=== PATIENT | female | born 1990 | race Two or more races ===

== ENCOUNTER 2016-10-26 14:36 | Emergency (ER) | payer OTHER ==
[~2016-10-26] VITALS: Ht 157.5 cm; Wt 90.7 kg
[~2016-10-26 14:36] MED LIST: FLUO10CA26 PO
--- NOTE | 2016-10-26 14:44 | NUR ---
Dr. Osullivan in room for eval.
--- NOTE | 2016-10-26 14:53 | NUR ---
Patient discharged to home in stable conditon. Written and verbal after care instructions given. Patient verbalizes understanding of instructions.
[2016-10-26 14:54] VITALS: BP 121/83
== END 2016-10-26 15:01 | disposition home or self-care (01) ==
LOC: ER 14:40
DX: J02.9 Acute pharyngitis, unspecified (principal); Z88.8 Allergy status to other drugs, medicaments and biological substances
CPT/HCPCS: A4663

== ENCOUNTER 2016-11-21 12:34 | Emergency (ER) | payer OTHER ==
[~2016-11-21] VITALS: Ht 157.5 cm; Wt 90.7 kg
[2016-11-21] MEDS ORDERED: KETOROLAC TROMETHAMINE 30 MG INJ IVP ONE (14:15)
[2016-11-21] MEDS ORDERED: IV NORMAL SALINE 1000 ML BAG IV ONE (14:15)
[2016-11-21] MEDS ORDERED: CLINDAMYCIN PHOSPHATE IV 600 MG in IV DEXTROSE 5% 100 ML IV ONE (14:15)
[2016-11-21] MEDS ORDERED: DEXAMETHASONE SOD PHOSPHATE 4 MG INJ IV ONE (14:15)
[2016-11-21] MEDS ORDERED: DEXAMETHASONE SOD PHOSPHATE 10 MG INJ ONE (14:25)
[2016-11-21] MEDS ORDERED: CLINDAMYCIN PHOSPHATE 600 MG/4 ML VIAL ONE (14:26)
[2016-11-21] MEDS ORDERED: KETOROLAC TROMETHAMINE 30 MG INJ ONE (14:27)
[2016-11-21 14:33] LABS: BASOPHILS # (AUTO) 0.4 K/uL (0.0-8.0); BASOPHILS % (AUTO) 2.5 % (0.0-2.0); EOSINOPHILS # (AUTO) 0.1 K/uL (0.0-0.7); EOSINOPHILS % (AUTO) 0.5 % (0.0-7.0); HEMATOCRIT 38.2 % (37-47); HEMOGLOBIN 12.4 G/DL (12.0-16.0); LYMPHOCYTES # (AUTO) 1.3 K/UL (0.8-4.8); LYMPHOCYTES % (AUTO) 7.6 % (20.5-51.5); MEAN CORPUSCULAR HEMOGLOBIN 28.9 UUG (27.0-31.0); MEAN CORPUSCULAR HGB CONC 33 g/dL (32.0-37.0); MEAN CORPUSCULAR VOLUME 88.7 FL (81.0-99.0); MONOCYTES # (AUTO) 0.6 K/UL (0.1-1.30); MONOCYTES % (AUTO) 3.7 % (0.0-11.0); NEUTROPHILS # (AUTO) 14.3 K/UL (1.8-8.9); NEUTROPHILS % (AUTO) 85.7 % (38.5-71.5); PLATELET COUNT (AUTO) 381 K/UL (150-450); WHITE BLOOD COUNT (AUTO) 16.7 K/UL (4.0-11.2)
[2016-11-21 14:39] LABS: CREATININE 0.7 mg/dL (0.6-1.3); POTASSIUM 3.5 mmol/L (3.5-5.1)
[2016-11-21 14:44] LABS: BILIRUBIN,DIRECT 0.1 mg/dL (0.0-0.2); BILIRUBIN,TOTAL 0.5 mg/dL (0.2-1.0); TOTAL PROTEIN, SERUM 8.3 g/dL (6.4-8.2)
[2016-11-21 14:59] LABS: BAND % (MANUAL) 4 % (0-10); EOSINOPHILS % (MANUAL) 2 % (0-8); LYMPHOCYTES % (MANUAL) 10 % (20-40); MONOCYTES % (MANUAL) 4 % (2-10); NEUTROPHILS % (MANUAL) 80 % (42-75)
--- NOTE | 2016-11-21 16:24 | NUR ---
PT WAS EVALUATED BY DR ZEPEDA. PT WAS MEDICATED ACCORDING TO ER MD ORDERS. PT TOLERATED TO MEDICATION WITHOUT COMPLICATIONS. PT WAS D/C TO HOME. D/C INSTRUCTIONS GIVEN TO THE PT.
[2016-11-21 16:25] VITALS: BP 137/81
== END 2016-11-21 16:26 | disposition home or self-care (01) ==
LOC: ER 13:05
DX: J03.90 Acute tonsillitis, unspecified (principal); F41.9 Anxiety disorder, unspecified; Z88.8 Allergy status to other drugs, medicaments and biological substances
CPT/HCPCS: 36415; 80048; 80076; 83605; 84484; 85025; 87040 ×2; 96365; 96375; 99285; A4663; J1100; J1885; J3490 ×2; J7030; 70030-TC

== ENCOUNTER 2017-05-04 14:15 | Emergency (ER) | payer OTHER ==
[~2017-05-04] VITALS: Ht 160 cm; Wt 90.7 kg
--- NOTE | 2017-05-04 14:36 | NUR ---
MSE COMPLETED. PT D/C'D HOME, ACI/RX X1 GIVEN. PT AMBULATED VW/O DIFF/TOOK ALL BELONGINGS.
[2017-05-04 14:37] VITALS: BP 117/65
== END 2017-05-04 14:41 | disposition home or self-care (01) ==
LOC: ER 14:15
DX: J20.9 Acute bronchitis, unspecified (principal); Z90.49 Acquired absence of other specified parts of digestive tract
CPT/HCPCS: 99283; A4663

== ENCOUNTER 2017-09-07 11:30 | Emergency (ER) | payer OTHER ==
[~2017-09-07] VITALS: Ht 160 cm; Wt 99.8 kg
[2017-09-07] MEDS ORDERED: LEVONOR-ETH ESTRAD 0.1-0.02 MG PO (11:46)
--- NOTE | 2017-09-07 12:28 | NUR ---
hands off report given to glynn watters
[2017-09-07] MEDS ORDERED: FLUCONAZOLE 100 MG TABLET PO ONE (12:30)
[2017-09-07] MEDS ORDERED: FLUCONAZOLE 100 MG TABLET ONE (12:31)
[2017-09-07 12:52] LABS: BASOPHILS # (AUTO) 0.1 K/uL (0.0-8.0); BASOPHILS % (AUTO) 0.8 % (0.0-2.0); CREATININE 0.8 mg/dL (0.6-1.3); EOSINOPHILS # (AUTO) 0.1 K/uL (0.0-0.7); EOSINOPHILS % (AUTO) 1.3 % (0.0-7.0); HEMATOCRIT 35.6 % (31.2-41.9); HEMOGLOBIN 12.1 g/dL (10.9-14.3); LYMPHOCYTES # (AUTO) 1.7 K/uL (20.0-40.0); LYMPHOCYTES % (AUTO) 26.4 % (20.5-51.5); MEAN CORPUSCULAR HEMOGLOBIN 30.3 uug (24.7-32.8); MEAN CORPUSCULAR HGB CONC 34 g/dL (32.3-35.6); MONOCYTES # (AUTO) 0.5 K/uL (2.0-10.0); MONOCYTES % (AUTO) 7.8 % (0.0-11.0); NEUTROPHILS # (AUTO) 4.2 K/uL (1.8-8.9); NEUTROPHILS % (AUTO) 63.7 % (38.5-71.5); PLATELET COUNT (AUTO) 321 K/uL (179-408); WHITE BLOOD COUNT (AUTO) 6.5 K/uL (3.8-11.8)
[2017-09-07 12:58] LABS: BILIRUBIN,DIRECT 0.1 mg/dL (0.0-0.2); BILIRUBIN,TOTAL 0.2 mg/dL (0.2-1.0); TOTAL PROTEIN, SERUM 7.4 g/dL (6.4-8.2)
[2017-09-07 13:07] LABS: *BILIRUBIN,URIN NEGATIVE (NEGATIVE); *BLOOD, URINE 2+ (NEGATIVE); *CLARITY,URINE CLOUDY (CLEAR); *KETONES,URINE NEGATIVE (NEGATIVE); *PROTEIN,URINE TRACE (NEGATIVE); *UROBILINOGEN,URINE 0.2 E.U./dl (NORMAL); LEUKOCYTE ESTERASE ,URINE NEGATIVE (NEGATIVE); NITRITE, URINE NEGATIVE (NEGATIVE); PH,URINE 8.5 (5.0-8.0); UGLUCOSE NEGATIVE (NEGATIVE)
[2017-09-07 13:18] LABS: BACTERIA,URINE FEW /HPF (NONE SEEN); RBC,URINE 20-50 /HPF (0-3); SQUAMOUS EPITHELIAL CELL,UR FEW /HPF (NONE SEEN); URINE AMORPHOUS PHOSPHATES MANY /HPF; WBC,URINE 0-3 /HPF (0-3)
--- NOTE | 2017-09-07 13:41 | NUR ---
Patient discharged to home in stable conditon. Written and verbal after care instructions given. Patient verbalizes understanding of instructions. Stressed follow up with pmd/obgyn or return to ER for worsening s/s.
[2017-09-09 10:06] LABS: *GC NAA Negative (Negative); *TRIC.VAG. NAA Negative (Negative)
== END 2017-09-07 13:42 | disposition home or self-care (01) ==
LOC: ER 11:31
DX: N83.209 Unspecified ovarian cyst, unspecified side (principal); Z88.8 Allergy status to other drugs, medicaments and biological substances; Z79.899 Other long term (current) drug therapy
CPT/HCPCS: 36415; 76856; 84703; 85025; 85730; 87491; A4663

== ENCOUNTER 2020-01-16 16:24 | Emergency (ER) | payer OTHER ==
[~2020-01-16] VITALS: Ht 160 cm; Wt 99.8 kg
[~2020-01-16 16:24] MED LIST changes: -FLUO10CA26 PO; +LEVONOR-ETH ESTRAD 0.1-0.02 MG PO
[2020-01-16] MEDS ORDERED: FLUO10CA26 PO (16:39)
--- NOTE | 2020-01-16 17:25 | NUR ---
Patient down to radiology
--- NOTE | 2020-01-16 17:43 | NUR ---
patient back from radiology.
[2020-01-16 17:56] LABS: BASOPHILS % (AUTO) 0.6 % (0.0-2.0); EOSINOPHILS # (AUTO) 0.1 K/uL (0.0-0.7); EOSINOPHILS % (AUTO) 0.8 % (0.0-7.0); HEMATOCRIT 37.2 % (31.2-41.9); HEMOGLOBIN 12.6 g/dL (10.9-14.3); LYMPHOCYTES # (AUTO) 1.6 K/uL (20.0-40.0); LYMPHOCYTES % (AUTO) 21.3 % (20.5-51.5); MEAN CORPUSCULAR HEMOGLOBIN 31.2 uug (24.7-32.8); MEAN CORPUSCULAR HGB CONC 34 g/dL (32.3-35.6); MEAN CORPUSCULAR VOLUME 92.2 fL (75.5-95.3); MONOCYTES # (AUTO) 0.6 K/uL (2.0-10.0); MONOCYTES % (AUTO) 8.4 % (0.0-11.0); NEUTROPHILS # (AUTO) 5.1 K/uL (1.8-8.9); NEUTROPHILS % (AUTO) 68.9 % (38.5-71.5); PLATELET COUNT (AUTO) 338 K/uL (179-408); RED BLOOD CELL COUNT(AUTO) 4.04 MIL/uL (3.63-4.92); WHITE BLOOD COUNT (AUTO) 7.4 K/uL (3.8-11.8)
[2020-01-16 18:03] LABS: CREATININE 0.9 mg/dL (0.6-1.3); POTASSIUM 3.8 mmol/L (3.5-5.1)
[2020-01-16 18:09] LABS: BILIRUBIN,DIRECT 0.1 mg/dL (0.0-0.2); BILIRUBIN,TOTAL 0.4 mg/dL (0.2-1.0); TOTAL PROTEIN, SERUM 7.4 g/dL (6.4-8.2)
--- NOTE | 2020-01-16 18:50 | NUR ---
Dcd instructions given to pt. who verbalized understanding. a copy of radiology result provided as well. Pt. left room ambulatory AAOX4. No c/of pain
== END 2020-01-16 18:54 | disposition home or self-care (01) ==
LOC: ER 16:24
DX: R51 Headache (principal); R13.10 Dysphagia, unspecified; Z87.898 Personal history of other specified conditions
CPT/HCPCS: 36415; 70360; 70450; 85025; A4663

== ENCOUNTER 2020-07-03 19:20 | Emergency (ER) | payer OTHER ==
[~2020-07-03] VITALS: Ht 157.5 cm; Wt 90.7 kg
[~2020-07-03 19:20] MED LIST changes: +FLUO10CA26 PO
[2020-07-03] MEDS ORDERED: SULFAMETH/TRIMETH 800/160 MG TABLET PO ONE (20:00)
[2020-07-03] MEDS ORDERED: CEFTRIAXONE 1 G VIAL IM ONE (20:00)
[2020-07-03] MEDS ORDERED: HYDROCODONE/APAP 5-325MG TABLET PO ONE (20:00)
[2020-07-03] MEDS ORDERED: SULF1TAB48 PO (20:02)
[2020-07-03] MEDS ORDERED: CEPH500C2 PO (20:02)
[2020-07-03] MEDS ORDERED: HYDROCODONE/APAP 5-325MG TABLET ONE (20:06)
[2020-07-03] MEDS ORDERED: LIDOCAINE HCL 1% 20 ML VIAL ONE (20:06)
[2020-07-03] MEDS ORDERED: CEFTRIAXONE 1 G VIAL ONE (20:07)
[2020-07-03] MEDS ORDERED: SULFAMETH/TRIMETH 800/160 MG TABLET ONE (20:07)
[2020-07-03] MEDS ORDERED: OXYC-128 PO (20:17)
[2020-07-03] MEDS ORDERED: HYDR453.3 TP (20:17)
[2020-07-03 20:31] VITALS: BP 105/59
--- NOTE | 2020-07-03 20:31 | NUR ---
Patient discharged to home in stable condition. Written and verbal after care instructions given. Patient verbalizes understanding of instructions. Stressed follow up or return to ER for worsening s/s. Patient A/Ox4, able to ambulate with steady gait, and all belongings returned to patient prior to departure.
== END 2020-07-03 20:31 | disposition home or self-care (01) ==
LOC: ER 19:21
DX: R21 Rash and other nonspecific skin eruption (principal); F17.210 Nicotine dependence, cigarettes, uncomplicated; Z88.8 Allergy status to other drugs, medicaments and biological substances; F32.9 Major depressive disorder, single episode, unspecified; Z79.899 Other long term (current) drug therapy
CPT/HCPCS: 96372; 99283; 99406; J0696; J3490; A4663

== ENCOUNTER 2020-12-21 16:02 | Emergency (ER) | payer OTHER ==
[~2020-12-21] VITALS: Ht 157.5 cm; Wt 90.7 kg
[~2020-12-21 16:02] MED LIST changes: +CEPH500C2 PO; +HYDR453.3 TP; +OXYC-128 PO; +SULF1TAB48 PO
--- NOTE | 2020-12-21 18:00 | NUR ---
Patient discharged to home in stable condition. Written and verbal after care instructions given. Patient verbalizes understanding of instructions. Stressed follow up or return to ER for worsening s/s.
== END 2020-12-21 18:58 | disposition home or self-care (01) ==
LOC: ER 16:08
DX: J20.8 Acute bronchitis due to other specified organisms (principal); Z20.822 Contact with and (suspected) exposure to COVID-19; L24.9 Irritant contact dermatitis, unspecified cause; F17.210 Nicotine dependence, cigarettes, uncomplicated; F32.9 Major depressive disorder, single episode, unspecified; F41.9 Anxiety disorder, unspecified; Z79.899 Other long term (current) drug therapy
CPT/HCPCS: 87426; 99283; U0003; A4663

== ENCOUNTER 2021-02-03 19:22 | Emergency (ER) | payer OTHER ==
[~2021-02-03] VITALS: Ht 157.5 cm; Wt 93.0 kg
--- NOTE | 2021-02-03 19:55 | NUR ---
PT AMBULATED TO ER C/O SOB, WEAKNESS AND DIZZINESS, STATED SHE IS COUGHING UP PHLEM X 6 DAYS. STATES SHE TOOK A COVID TEST 3 DAYS AGO AND HAD A POSITIVE RESULT. SHE AGAIN TOOK ANOTHER COVID TEST 2 DAYS AGO AND HAD A NEGATIVE RESULT. CAME IN FOR WORSENING SYMPTOMS. A/O X4, DENIES CP/PRESSURE. CLEAR SPEECH, COMPLETE SENTENCES. DENIES GI/ DISTRESS.
--- NOTE | 2021-02-03 20:08 | NUR ---
DR. ARNOLD AT [facility] IN PROGRESS.
[2021-02-03] MEDS ORDERED: OXYCODONE/APAP 5-325 MG TABLET PO ONE (20:30)
--- NOTE | 2021-02-03 20:32 | NUR ---
XRAY AT BEDSIDE.
[2021-02-03] MEDS ORDERED: OXYCODONE/APAP 5-325 MG TABLET ONE (20:33)
--- NOTE | 2021-02-03 20:36 | NUR ---
PHLEB AT BEDSIDE.
[2021-02-03 20:55] LABS: HEMATOCRIT 36.5 % (31.2-41.9); MEAN CORPUSCULAR HEMOGLOBIN 30.8 uug (24.7-32.8); MEAN CORPUSCULAR VOLUME 89.4 fL (75.5-95.3); PLATELET COUNT (AUTO) 235 K/uL (179-408)
[2021-02-03 21:07] LABS: CREATININE 0.8 mg/dL (0.6-1.3); POTASSIUM 3.4 mmol/L (3.5-5.1)
[2021-02-03 21:12] LABS: BILIRUBIN,DIRECT 0.1 mg/dL (0.0-0.2); BILIRUBIN,TOTAL 0.3 mg/dL (0.2-1.0); TOTAL PROTEIN, SERUM 7.2 g/dL (6.4-8.2)
[2021-02-03] MEDS ORDERED: OXYC-128 PO (22:12)
--- NOTE | 2021-02-03 22:19 | NUR ---
Patient discharged to home in stable condition. No changes in LOC. Denies any pain/discomfort upon discharge. Written and verbal after care instructions given. Patient verbalizes understanding of instructions. Stressed follow up or return to ER for worsening s/s. Steady gait.
[2021-02-03 22:20] VITALS: BP 122/67
== END 2021-02-03 22:21 | disposition home or self-care (01) ==
LOC: ER 19:31
DX: U07.1 COVID-19 (principal); M79.10 Myalgia, unspecified site; M25.50 Pain in unspecified joint
CPT/HCPCS: 36415; 71045; 85025; A4663

== ENCOUNTER 2021-03-29 19:51 | Emergency (ER) | payer OTHER ==
[~2021-03-29] VITALS: Ht 157.5 cm; Wt 99.8 kg
[2021-03-29 20:57] LABS: *BILIRUBIN,URIN NEGATIVE (NEGATIVE); *BLOOD, URINE 3+ (NEGATIVE); *COLOR,URINE YELLOW (YELLOW); *KETONES,URINE NEGATIVE (NEGATIVE); *UROBILINOGEN,URINE 0.2 E.U./dl (NORMAL); LEUKOCYTE ESTERASE ,URINE 1+ (NEGATIVE); NITRITE, URINE NEGATIVE (NEGATIVE); PH,URINE 5.5 (5.0-8.0); UGLUCOSE NEGATIVE (NEGATIVE)
[2021-03-29 20:58] LABS: *URINE HCG, QUAL NEGATIVE (NEGATIVE)
[2021-03-29 21:00] LABS: *CLARITY,URINE SLIGHTLY CLOUDY (CLEAR); BACTERIA,URINE FEW /HPF (NONE SEEN); RBC,URINE 20-50 /HPF (0-3); SQUAMOUS EPITHELIAL CELL,UR MODERATE /HPF (NONE SEEN)
--- NOTE | 2021-03-29 21:30 | NUR ---
31 y/o female presents from home for polyuria, burning sensation when she urinates, and retention. No reports of high grade fevers, chills, diaphoresis. A&Ox4. Ambulatory w/ steady gait. Normal rate & Rhythm. BP unremarkable. GI/: No issues present beyond chief complaint.
--- NOTE | 2021-03-29 21:49 | NUR ---
MD Ocasio at bedside for MSE
[2021-03-29] MEDS ORDERED: CEPH500C2 PO (21:56)
[2021-03-29] MEDS ORDERED: PHEN-704 PO (21:56)
[2021-03-29] MEDS ORDERED: CEphaleXIN 500 MG CAPSULE PO ONE (22:00)
[2021-03-29] MEDS ORDERED: PHENAZOPYRIDINE HCL 100 MG TABLET PO ONE (22:00)
[2021-03-29 22:07] VITALS: BP 122/66
[2021-03-29] MEDS ORDERED: CEphaleXIN 500 MG CAPSULE ONE (22:10)
[2021-03-29] MEDS ORDERED: PHENAZOPYRIDINE HCL 100 MG TABLET ONE (22:10)
== END 2021-03-29 22:06 | disposition home or self-care (01) ==
LOC: ER 19:53
DX: N39.0 Urinary tract infection, site not specified (principal); F17.210 Nicotine dependence, cigarettes, uncomplicated; F41.9 Anxiety disorder, unspecified; F32.A Depression, unspecified; Z79.899 Other long term (current) drug therapy
CPT/HCPCS: 84703; 87086; A4663

== ENCOUNTER 2021-07-23 20:50 | Emergency (ER) | payer OTHER ==
[~2021-07-23] VITALS: Ht 157.5 cm; Wt 99.8 kg
[~2021-07-23 20:50] MED LIST changes: +PHEN-704 PO
--- NOTE | 2021-07-23 21:50 | NUR ---
Dr. Guerra at bedside for MSE.
[2021-07-23] MEDS ORDERED: ONDANSETRON ODT 4 MG TAB.RAPDIS SL ONE (22:00)
[2021-07-23] MEDS ORDERED: ONDANSETRON ODT 4 MG TAB.RAPDIS ONE (22:18)
[2021-07-23] MEDS ORDERED: IBUP-1955 PO (22:34)
--- NOTE | 2021-07-23 22:37 | NUR ---
Patient discharged to home in stable condition. Written and verbal after care instructions given. Patient verbalizes understanding of instructions. Stressed follow up or return to ER for worsening s/s. Patient out of ER with steady gait, no acute signs of distress, VSS, all belongings taken.
[2021-07-23 22:38] VITALS: BP 126/80
== END 2021-07-23 22:38 | disposition home or self-care (01) ==
LOC: ER 20:50
DX: S62.632D Displaced fracture of distal phalanx of right middle finger, subsequent encounter for fracture with routine healing (principal); X58.XXXD Exposure to other specified factors, subsequent encounter; Z72.0 Tobacco use
CPT/HCPCS: A4663; Q0162

== ENCOUNTER 2022-10-11 12:00 | Emergency (ER) | payer OTHER ==
[~2022-10-11] VITALS: Ht 157.5 cm; Wt 99.8 kg
[~2022-10-11 12:00] MED LIST changes: +IBUP-1955 PO
[2022-10-11] MEDS ORDERED: ACETAMINOPHEN ES 500 MG TABLET PO ONE (12:30)
[2022-10-11] MEDS ORDERED: IBUPROFEN 400 MG TABLET PO ONE (12:30)
[2022-10-11] MEDS ORDERED: ACETAMINOPHEN ES 500 MG TABLET ONE (12:36)
[2022-10-11] MEDS ORDERED: IBUPROFEN 400 MG TABLET ONE (12:36)
[2022-10-11 13:39] LABS: *MONOTEST NEGATIVE (NEGATIVE)
[2022-10-11] MEDS ORDERED: PENI500T PO (14:53)
--- NOTE | 2022-10-11 15:05 | NUR ---
Patient discharged to home by Dr Lutz in stable condition with brisk steady gait. Written and verbal after care instructions given to patient by MD himself. Patient verbalized understanding and compliance of instructions. Stressed follow up with primary doctor or return to ER for worsening s/s.
[2022-10-11 15:06] VITALS: BP 129/89
== END 2022-10-11 15:05 | disposition home or self-care (01) ==
LOC: ER 12:00
DX: J02.0 Streptococcal pharyngitis (principal); F17.210 Nicotine dependence, cigarettes, uncomplicated; Z88.8 Allergy status to other drugs, medicaments and biological substances; Z79.1 Long term (current) use of non-steroidal anti-inflammatories (NSAID); Z79.899 Other long term (current) drug therapy
CPT/HCPCS: 99283; 87804 ×2; 86308; 86403; 36415; U0003; A4663; A9150

== ENCOUNTER 2024-11-13 22:12 | Emergency (ER) | payer OTHER ==
[~2024-11-13] VITALS: Ht 165.1 cm; Wt 113.4 kg
[~2024-11-13 22:12] MED LIST changes: +PENI500T PO
[2024-11-13] MEDS ORDERED: NEOM28.43 TP (23:31)
[2024-11-13] MEDS ORDERED: CEPH500C2 PO (23:31)
[2024-11-13] MEDS ORDERED: SULF1TAB48 PO (23:31)
[2024-11-13] MEDS ORDERED: SULFAMETH/TRIMETH 800/160 MG TABLET ONE (23:35)
[2024-11-13] MEDS ORDERED: ACETAMINOPHEN 500 MG TABLET ONE (23:35)
[2024-11-13] MEDS ORDERED: NEOMY/BACITRA/POLYMYXIN B OINT UD PACKET TP ONE (23:35)
[2024-11-13] MEDS ORDERED: CEphaleXIN 500 MG CAPSULE ONE (23:35)
[2024-11-13] MEDS: SULFAMETH/TRIMETH 800/160 MG TABLET PO ONE (23:36)
[2024-11-13] MEDS: CEphaleXIN 500 MG CAPSULE PO ONE (23:37)
[2024-11-13] MEDS: ACETAMINOPHEN 500 MG TABLET PO ONE (23:38)
[2024-11-13] MEDS: NEOMY/BACITRA/POLYMYXIN B OINT UD PACKET TP ONE (23:42)
[2024-11-13 23:47] VITALS: BP 133/86; O2SAT 99
== END 2024-11-13 23:48 | disposition home or self-care (01) ==
LOC: ER 22:22
DX: T81.41XA Infection following a procedure, superficial incisional surgical site, initial encounter (principal); F17.210 Nicotine dependence, cigarettes, uncomplicated; F41.9 Anxiety disorder, unspecified; Z79.1 Long term (current) use of non-steroidal anti-inflammatories (NSAID); Z79.899 Other long term (current) drug therapy; Z86.16 Personal history of COVID-19; Z88.8 Allergy status to other drugs, medicaments and biological substances; Z87.09 Personal history of other diseases of the respiratory system; Z85.43 Personal history of malignant neoplasm of ovary; Z87.2 Personal history of diseases of the skin and subcutaneous tissue; Y84.8 Other medical procedures as the cause of abnormal reaction of the patient, or of later complication, without mention of misadventure at the time of the procedure; Y92.89 Other specified places as the place of occurrence of the external cause
CPT/HCPCS: A4606; A4663; A9150